=== PATIENT | male | born 1955 | race African-American/Black ===

== ENCOUNTER 2017-05-15 14:59 | Emergency (ER) | payer MEDICAID ==
[~2017-05-15] VITALS: Ht 177.8 cm; Wt 77.1 kg
[2017-05-15] MEDS ORDERED: Tetanus/Diptheria/Pertussis Vaccine 0.5ml Syr IM ONE (15:00)
[2017-05-15] MEDS ORDERED: Lidocaine/Epi 1% 10ml vial INJ ONE (15:00)
[2017-05-15] MEDS ORDERED: Neosporin Oint Ud Pkt TOP ONE (15:00)
[2017-05-15] MEDS ORDERED: BENZTROPINE MESY1 MG PO (15:14)
[2017-05-15] MEDS ORDERED: SERTRALINE HCL50 MG ORAL (15:14)
[2017-05-15] MEDS ORDERED: HALOPERIDOL10 MG ORAL (15:14)
--- NOTE | 2017-05-15 15:18 | Emergency Room Report ---
History of Present Illness General Chief Complaint: Multiple Trauma/Fall Source: Patient, EMS Present Illness HPI The patient was brought by paramedics after a trip and fall. He's been drinking alcohol earlier today. He hit the right side of his face. He denies any loss of consciousness. There was bleeding and there was a small laceration. This was dressed by gluer and wedger. Accu-Chek was normal on the way in. The patient denies any pain at this time. He states it's been greater than 10 years since his last tetanus shot. The patient is in an assisted living situation for treatment of schizophrenia. He denies suicidal or homicidal ideation at this time. No headache, neck pain, NVD, chest pain, dyspnea, cough, fever, dysuria, other joint pain, rashes (other than laceration). Allergies: Coded Allergies: No Known Allergies (Unverified , 05/15/17) Patient History Past Medical History: see triage record Social History: Reports: alcohol use Social History Narrative assisted living Reviewed Nursing Documentation: PMH: Agreed, PSxH: Agreed Nursing Documentation-PMH Past Medical History: No History, Except For History Of Psychiatric Problem: Yes - ETOH Review of Systems All Other Systems: negative except mentioned in HPI Physical Exam Vital Signs Date Time Temp Pulse Resp B/P (MAP) Pulse Ox O2 Delivery O2 Flow Rate FiO2 05/15/17 14:59 98.4 100 18 142/78 98 Room Air Sp02 EP Interpretation: reviewed, normal General Appearance: well appearing, no apparent distress, GCS 15 Head: normocephalic, other - laceration R lateral eye area Eyes: bilateral eye PERRL, bilateral eye EOMI, bilateral eye Scleral Injection ENT: moist mucus membranes - poor dentition Neck: supple, no bony tend Respiratory: chest non-tender, lungs clear, normal breath sounds Cardiovascular #1: regular rate, rhythm Cardiovascular #2: 2+ radial (R) Gastrointestinal: normal inspection, normal bowel sounds, non tender, no mass, non-distended Musculoskeletal: back normal, gait/station normal, normal range of motion Neurologic: alert, oriented x3, bow string maker III-XII nml as tested, motor strength/tone normal, DTRs symmetric, sensory intact, speech normal Psychiatric: mood/affect normal Skin: warm/dry, laceration - R eyebrow Procedures Laceration/Wound Repair Laceration/Wound Repair : Consent: Verbal Wound Location: face Wound's Depth, Shape: into muscle, irregular, stellate, contused tissue Wound Length (cm): 2 Wound Explored: clean Betadine Prep?: Yes Anesthesia: Lidocaine w/ Epi Volume Anesthetic (ccs): 2 Wound Debrided: none Wound Repaired With: sutures Suture Size/Type: 6:0 Layer Closure?: Yes Deep Layer Suture Size/Type: 6:0 Number Deep Layer Sutures: 1 Sterile Dressing Applied?: Yes Patient Tolerated: Well Complications: None Medical Decision Making Diagnostic Impression: Primary Impression: Facial laceration Qualified Codes: S01.81XA - Laceration without foreign body of other part of head, initial encounter Additional Impressions: Fall Qualified Codes: W19.XXXA - Unspecified fall, initial encounter Alcohol abuse ER Course The patient was brought by paramedics after a non-syncopal fall with an injury to the right side of his face. He has a nonfocal neurologic exam at this time however needs to have a CT scan done of his head and neck. In addition to that his tetanus and laceration repair. Laceration sutured. [facility] report with question of subarachnoid bleed. Called to discuss with radiologist. Neck with DJD. Labs ordered. Labs with + BA. EKG no injury. CXR unremarkable. Sodium minimally low - clinically not significant. Discussed with Dr. Maldonado at [facility]. They are swamped and asked if we could try [facility]. Dr. Saleme Maldonado at [facility] recommends repeat CT in 3 hours. States most likely, CT with chronic problem. Repeat CT, less abnormal. Repeat neurologic exam non-focal and patient ambulatory without difficulty. Discussed CT with family. Discussed alcohol with family also. Patient stable for outpatient observation and treatment. Laboratory Tests Test 05/15/17 16:55 05/15/17 17:03 White Blood Count 3.4 K/UL (4.8-10.8) L Red Blood Count 4.34 M/UL (4.70-6.10) L Hemoglobin 14.9 G/DL (14.2-18.0) Hematocrit 42.3 % (42.0-52.0) Mean Corpuscular Volume 97 FL (80-99) Mean Corpuscular Hemoglobin 34.3 PG (27.0-31.0) H Mean Corpuscular Hemoglobin Concent 35.2 G/DL (32.0-36.0) Red Cell Distribution Width 11.3 % (11.6-14.8) L Platelet Count 209 K/UL (150-450) Mean Platelet Volume 6.2 FL (6.5-10.1) L Neutrophils (%) (Auto) 67.4 % (45.0-75.0) Lymphocytes (%) (Auto) 14.8 % (20.0-45.0) L Monocytes (%) (Auto) 14.7 % (1.0-10.0) H Eosinophils (%) (Auto) 0.6 % (0.0-3.0) Basophils (%) (Auto) 2.5 % (0.0-2.0) H Prothrombin Time 9.0 SEC (9.30-11.50) L Prothrombin Time INR 0.9 (0.9-1.1) PTT 32 SEC (23-33) Sodium Level 128 MMOL/L (136-145) L Potassium Level 4.0 MMOL/L (3.5-5.1) Chloride Level 91 MMOL/L (98-107) L Carbon Dioxide Level 25 MMOL/L (21-32) Anion Gap 12 mmol/L (5-15) Blood Urea Nitrogen 3 mg/dL (7-18) L Creatinine 0.7 MG/DL (0.55-1.30) Estimate Glomerular Filtration Rate > 60 mL/min (>60) Glucose Level 107 MG/DL (74-106) H Calcium Level 8.6 MG/DL (8.5-10.1) Total Bilirubin 0.4 MG/DL (0.2-1.0) Aspartate Amino Transferase (AST) 78 U/L (15-37) H Alanine Aminotransferase (ALT) 47 U/L (12-78) Alkaline Phosphatase 127 U/L (46-116) H Total Creatine Kinase 137 U/L (26-308) Troponin I 0.005 ng/mL (0.000-0.056) Pro-B-Type Natriuretic Peptide 22 pg/mL (0-125) Total Protein 7.0 G/DL (6.4-8.2) Albumin 3.7 G/DL (3.4-5.0) Globulin 3.3 g/dL Albumin/Globulin Ratio 1.1 (1.0-2.7) Serum Alcohol 270 mg/dL Urine Opiates Screen Negative (NEGATIVE) Urine Barbiturates Screen Negative (NEGATIVE) Phencyclidine (PCP) Screen Negative (NEGATIVE) Urine Amphetamines Screen Negative (NEGATIVE) Urine Benzodiazepines Screen Negative (NEGATIVE) Urine Cocaine Screen Negative (NEGATIVE) Urine Marijuana (THC) Screen Negative (NEGATIVE) EKG Diagnostic Results Rate: normal Rhythm: NSR ST Segments: no acute changes Rhythm Strip Diag. Results EP Interpretation: yes Rhythm: NSR, no PVC's, no ectopy Chest X-Ray Diagnostic Results Chest X-Ray Diagnostic Results : Chest X-Ray Ordered: Yes # of Views/Limited/Complete: 1 View Interpretation: no consolidation, no effusion, no pneumothorax, no acute cardiopulmonary disease Impression: No acute disease Electronically Signed by: Randy Ragland MD CT/MRI/US Diagnostic Results CT/MRI/US Diagnostic Results #1: Imaging Test Ordered: head Impression possible subarachnoid hemorrhage (VS chronic changes) CT/MRI/US Diagnostic Results #2: Imaging Test Ordered: head Impression less prominent finding R Last Vital Signs Date Time Temp Pulse Resp B/P (MAP) Pulse Ox O2 Delivery O2 Flow Rate FiO2 05/15/17 20:47 98.8 100 16 154/72 98 Room Air 100 Status: improved Disposition: HOME, SELF-CARE Condition: Improved Scripts Bacitracin (Bacitracin) 28.4 Gm Oint...g. 1 APPLIC TOPIC BID, #14 GM Prov: Randy Ragland M.D. 05/15/17 Randy Ragland M.D. May 15, 2017 15:18
[2017-05-15 15:35] VITALS: BP 164/84
[2017-05-15 17:16] VITALS: BP 158/72
[2017-05-15 17:25] LABS: ANION GAP 12 mmol/L (5-15); CALCIUM 8.6 MG/DL (8.5-10.1); CARBON DIOXIDE 25 MMOL/L (21-32); CHLORIDE 91 MMOL/L (98-107); CREATININE 0.7 MG/DL (0.55-1.30); GLOMERULAR FILTRATION RATE > 60 mL/min (>60); SODIUM 128 MMOL/L (136-145)
[2017-05-15 17:36] LABS: MEAN CORPUSCULAR HEMOGLOBIN 34.3 PG (27.0-31.0); MEAN CORPUSCULAR HGB CONC 35.2 G/DL (32.0-36.0); MEAN CORPUSCULAR VOLUME 97 FL (80-99); MEAN PLATELET VOLUME 6.2 FL (6.5-10.1); PLATELET COUNT 209 K/UL (150-450); RED BLOOD COUNT 4.34 M/UL (4.70-6.10); RED CELL DISTRIBUTION WIDTH 11.3 % (11.6-14.8); WHITE BLOOD COUNT 3.4 K/UL (4.8-10.8)
[2017-05-15 17:37] LABS: BASOPHILS % (AUTO) 2.5 % (0.0-2.0); EOSINOPHILS % (AUTO) 0.6 % (0.0-3.0); LYMPHOCYTES % (AUTO) 14.8 % (20.0-45.0); MONOCYTES % (AUTO) 14.7 % (1.0-10.0); NEUTROPHILS % (AUTO) 67.4 % (45.0-75.0)
[2017-05-15 17:39] LABS: ALANINE AMINOTRANSFERASE 47 U/L (12-78); ALBUMIN/GLOBULIN RATIO 1.1 (1.0-2.7); ALCOHOL 270 mg/dL; ASPARTATE AMINO TRANSFERASE 78 U/L (15-37)
[2017-05-15 17:41] LABS: INR 0.9 (0.9-1.1)
[2017-05-15 18:16] VITALS: BP 161/78
[2017-05-15 19:31] VITALS: BP 154/72
[2017-05-15] MEDS ORDERED: BACITRACIN15 GM TOPIC (20:36)
[2017-05-15 20:47] VITALS: BP 154/72
--- NOTE | 2017-05-16 09:13 | Diagnostic Imaging Report ---
Indications: Head trauma, fall, EtOH abuse Technique: Spiral acquisitions obtained through the brain. Angled axial and coronal 5 x 5 mm slices were reconstructed. Total dose length product 39 mGycm. CTDI vol(s) 70 mGy. Dose reduction achieved using automated exposure control Comparison: None Findings: There is some high attenuation within a parietal sulcus on the right. This could represent a small amount of subarachnoid blood. No other evidence of acute hemorrhage or edema. No mass effect or midline shift. There is mild age-related enlargement of the ventricles and extra axial CSF spaces. The calvarium is intact. There is minimal sinus mucosal thickening. There is a small amount of right paravertebral scalp soft tissue swelling Impression: Focal sulcal high attenuation in the right parietal region, may reflect a small focus of subarachnoid hemorrhage, versus cortical petechial hemorrhage but could also be artifactual. Mild age-related changes, as described No acute mass effect Evidence of minimal right periorbital scalp soft tissue injury This agrees with the preliminary interpretation provided overnight by [facility]. The CT scanner at [facility] is accredited by the [employer] and the scans are performed using protocols designed to limit radiation exposure to as low as reasonably achievable to attain images of sufficient resolution adequate for diagnostic evaluation.
--- NOTE | 2017-05-16 09:17 | Diagnostic Imaging Report ---
Indication: TRAUMA Technique: Spiral acquisitions obtained through the cervical spine. No IV contrast utilized. Multiplanar reconstructions were generated. Total dose length product to 76 mGycm. CTDIvol(s) 13 mGy. Dose reduction achieved using automated exposure control Comparison: None Findings: There is straightening of the normal cervical lordosis. Otherwise normal bony alignment There is degenerative disc narrowing at T5-6 and C6-7, and slightly at C7-T1. No acute fractures. No dislocations. Vertebral body heights are preserved. There is considerable degenerative remodeling of the C6 vertebral body, however. At C3-4 and C4-5, mild broad-based posterior disc protrusion and short pedicles result in mild narrowing of the spinal canal. The neural foramina are preserved. At C5-6, posterior osteophytes and short pedicles result in borderline narrowing of the spinal canal. There is mild right and moderate left neural foraminal stenosis. At C6-7, no significant disc bulge or protrusion or spinal stenosis. There is mild bilateral neural foraminal stenosis. At the remaining disc levels, no significant disc bulge or protrusion, spinal stenosis, or neural foraminal stenosis. Impression: Degenerative changes, as described No evidence of acute bony trauma This agrees with the preliminary interpretation provided overnight by [facility]. The CT scanner at [facility] is accredited by the [employer] and the scans are performed using protocols designed to limit radiation exposure to as low as reasonably achievable to attain images of sufficient resolution adequate for diagnostic evaluation.
--- NOTE | 2017-05-16 09:58 | Diagnostic Imaging Report ---
Indications: Trauma, EtOH abuse, reason abnormal CT scan, for followup Technique: Spiral acquisitions obtained through the brain. Angled axial and coronal 5 x 5 mm slices were reconstructed. Total dose length product 1439 mGycm. CTDI vol(s) 70 mGy. Dose reduction achieved using automated exposure control Comparison: 4 hours earlier Findings: There is some image degradation due to motion artifact. Previously demonstrated region of high attenuation in a right parietal sulcus is not completely gone but much less conspicuous than on the prior exam. No new hemorrhage. No edema. No mass effect or midline shift. There is mild age-related enlargement of the ventricles and extra-axial CSF spaces. Right periorbital scalp soft tissue swelling is again demonstrated. The calvarium is intact. Impression: Previously demonstrated right parietal sulcal or gyral ribbon of high attenuation is considerably less conspicuous than prior exam of 4 hours earlier. This could represent interim dissipation of focal subarachnoid blood. No new bleed or edema Stable chronic changes, as described This agrees with the preliminary interpretation provided overnight by Dr. Brooke The CT scanner at [facility] is accredited by the [employer] and the scans are performed using protocols designed to limit radiation exposure to as low as reasonably achievable to attain images of sufficient resolution adequate for diagnostic evaluation.
--- NOTE | 2017-05-16 12:33 | Diagnostic Imaging Report ---
Indication: Shortness of breath Technique: One view of the chest Comparison: none Findings: Lungs and pleural spaces are clear. Heart size is normal. Impression: No acute process
--- NOTE | 2017-05-17 17:05 | Cardiology Report ---
APPROVED REPORT EKG Measurement Heart [id number] Normal sinus rhythm Possible Left atrial enlargement Borderline ECG
== END 2017-05-15 20:48 | disposition home or self-care (01) ==
LOC: EDBD 14:59 → EMR 15:25
DX: S01.81XA Laceration without foreign body of other part of head, initial encounter (principal); Z23 Encounter for immunization; W18.30XA Fall on same level, unspecified, initial encounter; Y92.9 Unspecified place or not applicable
CPT/HCPCS: 36415; 70450; 71010; 72125; 80053; 80307; 80329; 82550; 83880; 84484; 85025; 85610; 85730; 90471; 90715; 93005; 99284; Z7502